=== PATIENT | female | born 1940 | race Caucasian/White ===

== ENCOUNTER → 2021-05-12 | Outpatient (CLI) | payer OTHER ==
[~2021-05-12] MED LIST: KLONOPIN TAB 00.5 MG PO; XANAX 0.25 MG0.25 MG PO
== END ==
LOC: KOH-I 11:03
DX: J20.9 Acute bronchitis, unspecified (principal); R06.02 Shortness of breath; J30.9 Allergic rhinitis, unspecified; R05.1 Acute cough
CPT/HCPCS: 71046